=== PATIENT | male | born 1970 | race Caucasian/White ===

== ENCOUNTER 2020-04-17 15:47 | Emergency (ER) | payer OTHER, SELFPAY ==
[2020-04-17 16:04] VITALS: BP 154/92; PULSE 71; RESP 18; TEMP 36.8; O2SAT 99; BMI 25.7
[2020-04-17 16:51] VITALS: BP 133/77; PULSE 84; RESP 15; O2SAT 99
--- NOTE | 2020-04-17 17:50 | DI.MRI.S_ITS ---
PROCEDURE: MR LUMBAR SPINE WO/W CON INDICATIONS: pain, numbness, incontinence TECHNIQUE: Noncontrast sagittal T1 spin echo and T2 fast spin echo, sagittal STIR, axial T1 and T2 fast spin echo through the lumbar spine. In cases with scoliosis, additional coronal T2 fast spin echo may be performed. After the administration of contrast, sagittal and axial T1 spin echo with fat saturation through the lumbar spine. COMPARISON: [facility], MR, MR THORACIC SPINE WO/W CON, 04/17/2020, 18:39. [facility], CR, L-SPINE 2-3 VIEWS, 03/22/2016, 12:43. FINDINGS: Image quality: Motion is present on multiple sequences, limiting areas of fine detail evaluation. Alignment and curvature: There is trace retrolisthesis of L3 on L4. Marrow: Marrow is of normal overall signal. No acute vertebral body compression fractures. No suspicious marrow enhancement. Spinal cord: Conus medullaris terminates at the L1-L2 level. Visualized spinal cord demonstrates normal signal, without suspicious enhancement. Paraspinous soft tissues: No paravertebral masses or abnormal enhancement. Discs: Mild desiccation is present at L3-4, L5-S1. L1-L2: Minimal disc bulge with minimal canal narrowing. No foraminal narrowing. L2-L3: Prominent motion is present at this level. Minimal disc bulge with minimal canal narrowing. No foraminal narrowing. L3-L4: Significant motion is present at this level. No gross disc bulge, spinal stenosis or foraminal narrowing. L4-L5: Prominent motion is present at this level. Minimal disc bulge without spinal stenosis. Questionable minimal left foraminal narrowing. L5-S1: Prominent motion is present at this level. Minimal disc bulge without spinal stenosis. Questionable minimal foraminal narrowing. IMPRESSION: 1. Prior motion multiple levels limiting areas of evaluation. 2. Minimal scattered disc bulges, as well as minimal canal narrowing.. Dictated by: Zaida Haque M.D. on 04/17/2020 at 19:35 Approved by: Zaida Haque M.D. on 04/17/2020 at 19:39
--- NOTE | 2020-04-17 17:50 | DI.MRI.S_ITS ---
PROCEDURE: MR THORACIC SPINE WO/W CON INDICATIONS: pain, numbness, incontinence TECHNIQUE: Noncontrast sagittal T1 spin echo and T2 fast spin echo, sagittal STIR, axial T1 and T2 fast spin echo through the thoracic spine. After the administration of contrast, axial and sagittal T1 spin echo with fat saturation through the thoracic spine. COMPARISON: None. FINDINGS: Image quality: Motion is present on multiple sequences, limiting areas of fine detail evaluation. Alignment and curvature: There is normal bony alignment. Marrow: Marrow is of normal overall signal. No acute vertebral body compression fractures. Spinal cord: Visualized spinal cord is of normal signal and size, without abnormal enhancement. Paraspinous soft tissues: No paravertebral masses or abnormal enhancement. Miscellaneous: Disc bulge at T11-12 with moderate spinal stenosis and moderate left and mild right foraminal narrowing. Narrowing. Multilevel disc desiccation is present. IMPRESSION: 1. Disc bulge at T11-12 with moderate spinal stenosis and mild to moderate left and mild right foraminal Dictated by: Zaida Haque M.D. on 04/17/2020 at 19:21 Approved by: Zaida Haque M.D. on 04/17/2020 at 19:25
[2020-04-17 18:06] LABS: Add Manual Diff / Slide Review NO; Basophils Absolute Auto 100 /uL (0-100); Basophils Percent Auto 0.8 % (0-2); Eosinophils Absolute Auto 100 /uL (0-450); Eosinophils Percent Auto 1.3 % (2-4); Hematocrit 43.5 % (41-53); Hemoglobin 14.6 g/dL (13.5-17.5); Lymphocytes Absolute Auto 1600 /uL (1100-4500); Lymphocytes Percent Auto 18.6 % (25-40); Mean Corpuscular HGB Conc 33.6 % (30-36); Mean Corpuscular Hemoglobin 30.6 PG (26-34); Mean Corpuscular Volume 90.9 fL (80-100); Monocytes Absolute Auto 700 /uL (0-900); Monocytes Percent Auto 8.3 % (3-14); Neutrophils Absolute Auto 6100 /uL (1500-7000); Platelet Count 189 X10^3/uL (150-400); Red Blood Cell Count 4.78 X10^6/uL (4.5-5.9); Red Cell Distribution Width 16.8 % (11.6-14.8); White Blood Cell Count 8.6 X10^3/uL (4.5-11.0)
[2020-04-17 18:27] LABS: Erythrocyte Sedimentation Rate 3 MM/HR (0-15); Lactate (Lactic Acid) 1.1 mmol/L (0.7-2.1)
[2020-04-17 18:30] LABS: Alanine Aminotransferase 37 IU/L (<50); Albumin 5.2 g/dL (3.5-5.0); Albumin Globulin Ratio 1.5 (1.0-2.8); Alkaline Phosphatase 54 U/L (38-126); Aspartate Aminotransferase 47 IU/L (17-59); BUN Creatinine Ratio 11.3 (6-22); Bilirubin Total 1.1 mg/dL (0.2-1.3); Blood Urea Nitrogen 12 mg/dL (9-20); C-Reactive Protein Quant < 0.5 mg/dL (<1.0); Calcium 10.1 mg/dL (8.4-10.2); Carbon Dioxide 26 mmol/L (22-32); Chloride 105 mmol/L (98-107); Estimated Glomerular Filt Rate > 60.0 mL/min (>60); Globulin 3.5 g/dL (1.7-4.1); Glucose 86 mg/dL (70-100); HEMOLYSIS 63 (0-50); Potassium 4.1 mmol/L (3.4-5.1); Sodium 140 mmol/L (137-145); Total Protein 8.7 g/dL (6.3-8.2)
[2020-04-17] MEDS: LORazepam 2 MG/ML INJ 1 MG IV (18:36)
[2020-04-17 18:43] LABS: Procalcitonin < 0.05 ng/mL (<0.5)
--- NOTE | 2020-04-17 18:49 | PC.NURSE ---
Pt unable to lay down in MRI. Came to MRI and medicated pt with Ativan inorder to tolerate procedure.
--- NOTE | 2020-04-17 20:06 | ED.BACK ---
HPI - Back Pain/Injury <LANA Mendoza - Last Filed: 04/17/20 20:25> General Chief Complaint: Back Pain/Injury Stated Complaint: back pain Time Seen by Provider: 04/17/20 16:53 Source: patient and family Mode of arrival: Ambulatory Limitations: no limitations History of Present Illness HPI Narrative: The patient is a with history of left hip arthritis, waiting for hip replacement who presents the chief complaint of mid and lower back pain. This has been ongoing for the past several years but much worse over the past few weeks. He states he is having difficulties initiating and stopping urination, difficulties initiating and stopping bowel movements. He states he has had an episode of fecal incontinence. He states that he feels much weaker, is dropping things from his hands, and is overall concerned about his spine. He has taken Aleve this morning, but has not had anything else today. Related Data Home Medications Medication Instructions Recorded Confirmed emtricitabine-tenofovir (TDF) PO 04/14/20 04/14/20 meloxicam 7.5 mg tablet 7.5 mg PO DAILY 04/14/20 04/14/20 prazosin PO 04/14/20 04/14/20 Previous Rx's Medication Instructions Recorded anastrozole 1 mg tablet 1 mg PO QDAY #90 tab 11/28/19 testosterone cypionate 200 mg/mL 200 mg IM Q2W #10 ml 12/12/19 intramuscular oil sildenafil (pulm.hypertension) 20 20 mg PO .COMPLEX #50 tab 02/21/20 mg tablet polymyxin B sulfate 10,000 2 drop EYE-LEFT Q3H 7 Days #10 ml 04/14/20 unit-trimethoprim 1 mg/mL eye drops cyclobenzaprine 10 mg PO TID PRN #14 tab 04/17/20 hydrocodone-acetaminophen [Nash] 1 tab PO Q4-6H PRN #7 tab 04/17/20 ketorolac 10 mg PO TID PRN #14 tab 04/17/20 lidocaine 1 patch TOP DAILY PRN #15 each 04/17/20 Allergies Allergy/AdvReac Type Severity Reaction Status Date / Time No Known Drug Allergies Allergy Verified 04/14/20 09:34 Review of Systems <LANA Mendoza - Last Filed: 04/17/20 20:25> Review of Systems Narrative: GENERAL: Denies chills, fatigue, malaise, fever, sweats. HEENT: Denies sinus pain, ear pain, sore throat, difficulty swallowing, dizziness. RESPIRATORY: Denies dyspnea, cough, wheezing, hemoptysis, sputum. CARDIOVASCULAR: Denies chest pain, palpitations, orthopnea, edema, GASTROINTESTINAL: Denies nausea, vomiting, abdominal pain, diarrhea, constipation, melena. : Denies dysuria, frequency, incontinence, hematuria, urinary retention. MUSCULOSKELETAL: denies weakness, joint pain, or bony pain SKIN: Denies rash, skin lesions, or other NEUROLOGIC: See HPI PSYCHIATRIC: No concerning psychosocial issues. 12 point review of systems is negative except for those stated above Patient History <LANA Mendoaz - Last Filed: 04/17/20 20:25> Medical History (Updated 04/17/20 @ 20:18 by LANA Mendoza) Chickenpox (Resolved) Conjunctivitis (Acute) Fracture (Resolved) Frequent urination (Chronic) Hearing loss (Chronic) Hernia (Chronic) Hip pain (Chronic) Low testosterone (Chronic ~2015) Shoulder pain (Chronic) Staph infection (Resolved) Surgical History (Updated 01/30/19 @ 06:26 by Meghan Landry) Anesthesia (Inactive) History of abdominal surgery (Resolved ~1984) History of ankle surgery (Resolved ~1999) History of tonsillectomy (Resolved ~1979) Status post PICC central line placement (Resolved ~2009) Family History (Updated 01/30/19 @ 06:28 by Meghan Landry) Mother Cancer Brother No problems noted. Grandfather Cancer Grandmother Cancer Grandfather Heart disease Social History Smoking Status: Never smoker Smoking Status: Never smoker tobacco type: smokeless tobacco Substance Use Type: marijuana Exam <LANA Mendoza - Last Filed: 04/17/20 20:25> Narrative Exam Narrative: GENERAL: This is a well-nourished, well-developed patient, in appears anxious HEAD: Atraumatic. Normocephalic. No temporal or scalp tenderness. EYES: Pupils equal round and reactive. Extraocular motions intact. No scleral icterus. No injection or drainage. ENT: Nose without bleeding, purulent drainage or septal hematoma. Throat without erythema, tonsillar hypertrophy or exudate. Uvula midline. Airway patent. NECK: Trachea midline. No JVD or lymphadenopathy. Supple, nontender, no meningeal signs. CARDIOVASCULAR: Regular rate and rhythm RESPIRATORY: Clear to auscultation. Breath sounds equal bilaterally. No wheezes, rales, or rhonchi. No cough. No increased respiratory effort. No accessory muscle use. GASTROINTESTINAL: Abdomen soft, non-tender, nondistended. No hepato-splenomegaly, or palpable masses. No guarding. Rectal exam with Brenda RN at bedside. rectal tone intact at this point. EXTREMITIES: No clubbing, cyanosis, or edema. No joint tenderness, effusion, or edema noted. BACK: Gross tenderness to palpation of T and L-spine. No pain to palpation of C-spine. No palpable deformity or crepitance. No flank tenderness. NEURO: AOx3. SKIN: No rash or erythema on visible skin Initial Vital Signs Initial Vital Signs: Vital Signs Temperature 98.2 F 04/17/20 16:04 Pulse Rate 71 04/17/20 16:04 Respiratory Rate 18 04/17/20 16:04 Blood Pressure 154/92 H 04/17/20 16:04 Pulse Oximetry 99 04/17/20 16:04 <Camilo Grayson MD - Last Filed: 04/20/20 19:01> Initial Vital Signs Initial Vital Signs: Vital Signs Temperature 98.2 F 04/17/20 16:04 Pulse Rate 71 04/17/20 16:04 Respiratory Rate 18 04/17/20 16:04 Blood Pressure 154/92 H 04/17/20 16:04 Pulse Oximetry 99 04/17/20 16:04 Scores <LANA Mendoza - Last Filed: 04/17/20 20:25> GCS Anitra coma scale eye opening: Spontaneous [place] coma scale verbal response: Orientated [place] coma scale motor response: Obey commands [place] coma scale total score: 15 Course <LANA Mendoza - Last Filed: 04/17/20 20:25> Orders Ordered: Discontinued Medications Hydrocodone Bitart/Acetaminophen (Nash 5/325) 1 tab PO NOW ONE Stop: 04/17/20 19:49 Last Admin: 04/17/20 20:16 Dose: 1 tab Documented by: AUTASHA Cyclobenzaprine HCl (Flexeril) 10 mg PO NOW ONE Stop: 04/17/20 19:49 Last Admin: 04/17/20 20:16 Dose: 10 mg Documented by: CHEY Ketorolac Tromethamine (Toradol) 30 mg IM NOW ONE Stop: 04/17/20 19:49 Last Admin: 04/17/20 20:16 Dose: 30 mg Documented by: CHEY Lidocaine (Lidoderm) 1 each TOP NOW ONE Stop: 04/17/20 19:49 Last Admin: 04/17/20 20:16 Dose: 1 each Documented by: CHEY Lorazepam (Ativan) 1 mg IV NOW ONE Stop: 04/17/20 18:33 Last Admin: 04/17/20 18:36 Dose: 1 mg Documented by: EAMON Vital Signs Vital signs: Vital Signs - 8 hr 04/17/20 16:04 04/17/20 16:51 Temperature 98.2 F Pulse Rate 71 84 Respiratory Rate 18 15 Blood Pressure 154/92 H 133/77 Pulse Oximetry 99 99 <Camilo Grayson MD - Last Filed: 04/20/20 19:01> Orders Ordered: Discontinued Medications Hydrocodone Bitart/Acetaminophen (Nash 5/325) 1 tab PO NOW ONE Stop: 04/17/20 19:49 Last Admin: 04/17/20 20:16 Dose: 1 tab Documented by: CHEY Cyclobenzaprine HCl (Flexeril) 10 mg PO NOW ONE Stop: 04/17/20 19:49 Last Admin: 04/17/20 20:16 Dose: 10 mg Documented by: CHEY Ketorolac Tromethamine (Toradol) 30 mg IM NOW ONE Stop: 04/17/20 19:49 Last Admin: 04/17/20 20:16 Dose: 30 mg Documented by: CHEY Lidocaine (Lidoderm) 1 each TOP NOW ONE Stop: 04/17/20 19:49 Last Admin: 04/17/20 20:16 Dose: 1 each Documented by: CHEY Lorazepam (Ativan) 1 mg IV NOW ONE Stop: 04/17/20 18:33 Last Admin: 04/17/20 18:36 Dose: 1 mg Documented by: EAMON Vital Signs Vital signs: Vital Signs - 8 hr 04/17/20 16:04 04/17/20 16:51 Temperature 98.2 F Pulse Rate 71 84 Respiratory Rate 18 15 Blood Pressure 154/92 H 133/77 Pulse Oximetry 99 99 MDM - Back Pain/Injury <Karena Samson, [employer] - Last Filed: 04/17/20 20:25> Lab Data Result diagrams: 04/17/20 18:00 04/17/20 18:00 Labs: Lab Results 04/17/20 04/17/20 04/17/20 Range/Units 18:00 18:00 18:00 WBC 8.6 (4.5-11.0) X10^3/uL RBC 4.78 (4.5-5.9) X10^6/uL Hgb 14.6 (13.5-17.5) g/dL Hct 43.5 (41-53) % MCV 90.9 (80-100) fL MCH 30.6 (26-34) PG MCHC 33.6 (30-36) % RDW 16.8 H (11.6-14.8) % Plt Count 189 (150-400) X10^3/uL Neut % (Auto) 71.0 (50-75) % Lymph % (Auto) 18.6 L (25-40) % [place] % (Auto) 8.3 (3-14) % Eos % (Auto) 1.3 L (2-4) % Baso % (Auto) 0.8 (0-2) % Neut # (Auto) 6100 (4523-6821) /uL Lymph # (Auto) 1600 (5939-2541) /uL [place] # (Auto) 700 (0-900) /uL Eos # (Auto) 100 (0-450) /uL Baso # (Auto) 100 (0-100) /uL ESR 3 (0-15) MM/HR Sodium 140 (137-145) mmol/L Potassium 4.1 (3.4-5.1) mmol/L Chloride 105 (98-107) mmol/L Carbon Dioxide 26 (22-32) mmol/L BUN 12 (9-20) mg/dL Creatinine 1.06 (0.66-1.25) mg/dL Estimated GFR > 60.0 (>60) mL/min BUN/Creatinine Ratio 11.3 (6-22) Glucose 86 (70-100) mg/dL Lactate (0.7-2.1) mmol/L Calcium 10.1 (8.4-10.2) mg/dL Total Bilirubin 1.1 (0.2-1.3) mg/dL AST 47 (17-59) IU/L ALT 37 (<50) IU/L Alkaline Phosphatase 54 (38-126) U/L C-Reactive Protein < 0.5 (<1.0) mg/dL Total Protein 8.7 H (6.3-8.2) g/dL Albumin 5.2 H (3.5-5.0) g/dL Globulin 3.5 (1.7-4.1) g/dL Albumin/Globulin Ratio 1.5 (1.0-2.8) Procalcitonin < 0.05 (<0.5) ng/mL 04/17/20 Range/Units 18:00 WBC (4.5-11.0) X10^3/uL RBC (4.5-5.9) X10^6/uL Hgb (13.5-17.5) g/dL Hct (41-53) % MCV (80-100) fL MCH (26-34) PG MCHC (30-36) % RDW (11.6-14.8) % Plt Count (150-400) X10^3/uL Neut % (Auto) (50-75) % Lymph % (Auto) (25-40) % [place] % (Auto) (3-14) % Eos % (Auto) (2-4) % Baso % (Auto) (0-2) % Neut # (Auto) (7065-5796) /uL Lymph # (Auto) (3381-5360) /uL [place] # (Auto) (0-900) /uL Eos # (Auto) (0-450) /uL Baso # (Auto) (0-100) /uL ESR (0-15) MM/HR Sodium (137-145) mmol/L Potassium (3.4-5.1) mmol/L Chloride (98-107) mmol/L Carbon Dioxide (22-32) mmol/L BUN (9-20) mg/dL Creatinine (0.66-1.25) mg/dL Estimated GFR (>60) mL/min BUN/Creatinine Ratio (6-22) Glucose (70-100) mg/dL Lactate 1.1 (0.7-2.1) mmol/L Calcium (8.4-10.2) mg/dL Total Bilirubin (0.2-1.3) mg/dL AST (17-59) IU/L ALT (<50) IU/L Alkaline Phosphatase (38-126) U/L C-Reactive Protein (<1.0) mg/dL Total Protein (6.3-8.2) g/dL Albumin (3.5-5.0) g/dL Globulin (1.7-4.1) g/dL Albumin/Globulin Ratio (1.0-2.8) Procalcitonin (<0.5) ng/mL Urine Dip Bedside Urine Glucose Negative Bedside Urine Bilirubin - Negative Bedside Urine Ketone +/- 5 Urine Specific [place] 1.020 Bedside Urine Occult Blood - Negative Bedside Urine pH 6.0 Bedside Urine Protein - Negative Bedside Urine Urobilinogen +/- 1mg Bedside Urine Nitrite - Negative Bedside Urine Leukocytes - Negative Esterase Imaging Data T-spine MRI: Radiologist's Impression: [address] [place] [id number] Magnetic Resonance Report Signed Patient: Keenan Edge WMR#: [id number] : 1970Acct:[id number] Age/Sex: 49 / MDate of Service: 04/17/20 Loc: ED Accession Number: [id number] Procedure: MR thoracic spine wo/w con Ordering Provider: Karena SamsonP- PROCEDURE: MR THORACIC SPINE WO/W CON INDICATIONS: pain, numbness, incontinence TECHNIQUE: Noncontrast sagittal T1 spin echo and T2 fast spin echo, sagittal STIR, axial T1 and T2 fast spin echo through the thoracic spine. After the administration of contrast, axial and sagittal T1 spin echo with fat saturation through the thoracic spine. COMPARISON: None. FINDINGS: Image quality: Motion is present on multiple sequences, limiting areas of fine detail evaluation. Alignment and curvature: There is normal bony alignment. Marrow: Marrow is of normal overall signal. No acute vertebral body compression fractures. Spinal cord: Visualized spinal cord is of normal signal and size, without abnormal enhancement. Paraspinous soft tissues: No paravertebral masses or abnormal enhancement. Miscellaneous: Disc bulge at T11-12 with moderate spinal stenosis and moderate left and mild right foraminal narrowing. Narrowing. Multilevel disc desiccation is present. IMPRESSION: 1. Disc bulge at T11-12 with moderate spinal stenosis and mild to moderate left and mild right foraminal Dictated by: Zaida Haque M.D. on 04/17/2020 at 19:21 Approved by: Zaida Haque M.D. on 04/17/2020 at 19:25 L-spine MRI: Radiologist's Impression: [address] [place] [id number] Magnetic Resonance Report Signed Patient: Keenan Edge WMR#: [id number] : 1970Acct:[id number] Age/Sex: 49 / MDate of Service: 04/17/20 Loc: ED Accession Number: [id number] Procedure: MR lumbar spine wo/w con Ordering Provider: Karena Samson PROCEDURE: MR LUMBAR SPINE WO/W CON INDICATIONS: pain, numbness, incontinence TECHNIQUE: Noncontrast sagittal T1 spin echo and T2 fast spin echo, sagittal STIR, axial T1 and T2 fast spin echo through the lumbar spine. In cases with scoliosis, additional coronal T2 fast spin echo may be performed. After the administration of contrast, sagittal and axial T1 spin echo with fat saturation through the lumbar spine. COMPARISON: [facility], , MR THORACIC SPINE WO/W CON, 04/17/2020, 18:39. [facility], CR, L-SPINE 2-3 VIEWS, 03/22/2016, 12:43. FINDINGS: Image quality: Motion is present on multiple sequences, limiting areas of fine detail evaluation. Alignment and curvature: There is trace retrolisthesis of L3 on L4. Marrow: Marrow is of normal overall signal. No acute vertebral body compression fractures. No suspicious marrow enhancement. Spinal cord: Conus medullaris terminates at the L1-L2 level. Visualized spinal cord demonstrates normal signal, without suspicious enhancement. Paraspinous soft tissues: No paravertebral masses or abnormal enhancement. Discs: Mild desiccation is present at L3-4, L5-S1. L1-L2: Minimal disc bulge with minimal canal narrowing. No foraminal narrowing. L2-L3: Prominent motion is present at this level. Minimal disc bulge with minimal canal narrowing. No foraminal narrowing. L3-L4: Significant motion is present at this level. No gross disc bulge, spinal stenosis or foraminal narrowing. L4-L5: Prominent motion is present at this level. Minimal disc bulge without spinal stenosis. Questionable minimal left foraminal narrowing. L5-S1: Prominent motion is present at this level. Minimal disc bulge without spinal stenosis. Questionable minimal foraminal narrowing. IMPRESSION: 1. Prior motion multiple levels limiting areas of evaluation. 2. Minimal scattered disc bulges, as well as minimal canal narrowing.. Dictated by: Zaida Haque M.D. on 04/17/2020 at 19:35 Approved by: Zaida Haque M.D. on 04/17/2020 at 19:39 [facility] Narrative Medical decision making narrative: The patient is a 49-year-old male who presents with a chief complaint of back pain, groin numbness and incontinence of bowel. He has urinary difficulties over the past few weeks, and was incontinent a few days ago. Subsequently the patient's history raise concerns for an acute etiology such as cauda equina. Discussed case with Dr. Grayson who encouraged MRI of L and T-spine. MRI was obtained and had no acute findings other than disc bulging, stenosis. Pain medications were provided in the patient felt much reassured. I encouraged him to follow up with primary care provider as well as orthopedic providers. Discussed at length return precautions including incontinence of bowel, incontinence of bladder or numbness in his groin. Discussed that even though things came up well today, he needs to come back if he has any acute concerns. Patient has no questions or concerns upon discharge and states understanding of return precautions as well as follow-up care. <Camilo Grayson MD - Last Filed: 04/20/20 19:01> Lab Data Labs: Lab Results 04/17/20 04/17/20 04/17/20 Range/Units 18:00 18:00 18:00 WBC 8.6 (4.5-11.0) X10^3/uL RBC 4.78 (4.5-5.9) X10^6/uL Hgb 14.6 (13.5-17.5) g/dL Hct 43.5 (41-53) % MCV 90.9 (80-100) fL MCH 30.6 (26-34) PG MCHC 33.6 (30-36) % RDW 16.8 H (11.6-14.8) % Plt Count 189 (150-400) X10^3/uL Neut % (Auto) 71.0 (50-75) % Lymph % (Auto) 18.6 L (25-40) % [place] % (Auto) 8.3 (3-14) % Eos % (Auto) 1.3 L (2-4) % Baso % (Auto) 0.8 (0-2) % Neut # (Auto) 6100 (0168-1300) /uL Lymph # (Auto) 1600 (9568-8720) /uL [place] # (Auto) 700 (0-900) /uL Eos # (Auto) 100 (0-450) /uL Baso # (Auto) 100 (0-100) /uL ESR 3 (0-15) MM/HR Sodium 140 (137-145) mmol/L Potassium 4.1 (3.4-5.1) mmol/L Chloride 105 (98-107) mmol/L Carbon Dioxide 26 (22-32) mmol/L BUN 12 (9-20) mg/dL Creatinine 1.06 (0.66-1.25) mg/dL Estimated GFR > 60.0 (>60) mL/min BUN/Creatinine Ratio 11.3 (6-22) Glucose 86 (70-100) mg/dL Lactate (0.7-2.1) mmol/L Calcium 10.1 (8.4-10.2) mg/dL Total Bilirubin 1.1 (0.2-1.3) mg/dL AST 47 (17-59) IU/L ALT 37 (<50) IU/L Alkaline Phosphatase 54 (38-126) U/L C-Reactive Protein < 0.5 (<1.0) mg/dL Total Protein 8.7 H (6.3-8.2) g/dL Albumin 5.2 H (3.5-5.0) g/dL Globulin 3.5 (1.7-4.1) g/dL Albumin/Globulin Ratio 1.5 (1.0-2.8) Procalcitonin < 0.05 (<0.5) ng/mL 04/17/20 Range/Units 18:00 WBC (4.5-11.0) X10^3/uL RBC (4.5-5.9) X10^6/uL Hgb (13.5-17.5) g/dL Hct (41-53) % MCV (80-100) fL MCH (26-34) PG MCHC (30-36) % RDW (11.6-14.8) % Plt Count (150-400) X10^3/uL Neut % (Auto) (50-75) % Lymph % (Auto) (25-40) % [place] % (Auto) (3-14) % Eos % (Auto) (2-4) % Baso % (Auto) (0-2) % Neut # (Auto) (0365-1118) /uL Lymph # (Auto) (3247-5040) /uL [place] # (Auto) (0-900) /uL Eos # (Auto) (0-450) /uL Baso # (Auto) (0-100) /uL ESR (0-15) MM/HR Sodium (137-145) mmol/L Potassium (3.4-5.1) mmol/L Chloride (98-107) mmol/L Carbon Dioxide (22-32) mmol/L BUN (9-20) mg/dL Creatinine (0.66-1.25) mg/dL Estimated GFR (>60) mL/min BUN/Creatinine Ratio (6-22) Glucose (70-100) mg/dL Lactate 1.1 (0.7-2.1) mmol/L Calcium (8.4-10.2) mg/dL Total Bilirubin (0.2-1.3) mg/dL AST (17-59) IU/L ALT (<50) IU/L Alkaline Phosphatase (38-126) U/L C-Reactive Protein (<1.0) mg/dL Total Protein (6.3-8.2) g/dL Albumin (3.5-5.0) g/dL Globulin (1.7-4.1) g/dL Albumin/Globulin Ratio (1.0-2.8) Procalcitonin (<0.5) ng/mL Urine Dip Bedside Urine Glucose Negative Bedside Urine Bilirubin - Negative Bedside Urine Ketone +/- 5 Urine Specific [place] 1.020 Bedside Urine Occult Blood - Negative Bedside Urine pH 6.0 Bedside Urine Protein - Negative Bedside Urine Urobilinogen +/- 1mg Bedside Urine Nitrite - Negative Bedside Urine Leukocytes - Negative Esterase Discharge Plan Departure Patient Disposition: Home Clinical Impression: Pain in lower back Qualifiers: Chronicity: acute Back pain laterality: bilateral Sciatica presence: without sciatica Qualified Code(s): M54.5 - Low back pain Back pain, thoracic Qualifiers: Chronicity: acute Back pain laterality: bilateral Qualified Code(s): M54.6 - Pain in thoracic spine Discharge Date/Time: 04/17/20 20:33 Instructions: DI for Low Back Pain, DI for Back Spasm, DI for Back Strain or Sprain Activity Restrictions/Additional Instructions: Thank you for trusting us with your care today. As discussed your T and L-spine MRIs or taken and due to concerns about neurological function. They came back with multiple minimal disc bulges in her L-spine as well as minimal narrowing in your L-spine. The T-spine showed some disc bulge at T11-12 as well as some spinal stenosis. Please follow-up with primary care provider as well as your orthopedic providers. I sent pain medication prescriptions to [facility]. Please come back to emergency department for any acute concerns including incontinence of bowel, incontinence of bladder or numbness in your groin. I have given you a prescription of a narcotic for pain. Be aware that this can be constipating and sedating. I encouraged taking with a stool softener, pushing fluids and fiber. Do not take and drive, operate heavy machinery, etc. Do not combine it with any other sedating substances such as alcohol. The combination of narcotics and alcohol and/or other sedatives can be lethal. I have given you a prescription of Toradol. This is an NSAID. Do not combine it with other NSAIDs such as Aleve or ibuprofen or mobic. I suggest taking it with some food, as it can irritate your stomach. Please be aware that the cyclobenzaprine can also be sedating. Do not take and drive. Prescriptions: New hydrocodone-acetaminophen [Nash] 5-325 mg tablet 1 tab PO Q4-6H PRN (Reason: pain) Qty: 7 RF: 0 cyclobenzaprine 10 mg tablet 10 mg PO TID PRN (Reason: muscle spasm) Qty: 14 RF: 0 lidocaine 5 % adhesive patch,medicated 1 patch TOP DAILY PRN (Reason: pain) Qty: 15 RF: 0 ketorolac 10 mg tablet 10 mg PO TID PRN (Reason: pain) Qty: 14 RF: 0 No Action emtricitabine-tenofovir (TDF) PO RF: 0 meloxicam 7.5 mg tablet 7.5 mg PO DAILY RF: 0 prazosin PO RF: 0 polymyxin B sulf-trimethoprim 10,000 unit- 1 mg/mL drops 2 drop EYE-LEFT Q3H 7 Days Qty: 10 RF: 0 anastrozole 1 mg tablet 1 mg PO QDAY Qty: 90 RF: 3 testosterone cypionate 200 mg/mL oil 200 mg IM Q2W Qty: 10 RF: 5 sildenafil (pulm.hypertension) 20 mg tablet 20 mg PO .COMPLEX Qty: 50 RF: 5 Referrals: Jean Dobbins MD [Primary Care Provider] - <Camilo Grayson MD - Last Filed: 04/20/20 19:01> Cosign ED Attending Cosignature Attestation: I was immediately available in the department for consultation. This documentation has been reviewed and I agree with assessment and plan. Supervised by Camilo Grayson MD
[2020-04-17] MEDS: CYCLOBENZAPRINE 10 MG TABLET PO (20:16)
[2020-04-17] MEDS: LIDOCAINE PATCH 1 EACH ADH..PATCH TOP (20:16)
[2020-04-17] MEDS: KETOROLAC 60 MG/2 ML VIAL 30 MG IM (20:16)
[2020-04-17] MEDS: HYDROCODONE/ACET 5/325 TABLET 1 TAB PO (20:16)
[2020-04-17 20:32] VITALS: BP 113/62; PULSE 63; RESP 16; O2SAT 96
== END 2020-04-17 20:33 | disposition home or self-care (01) ==
PROVIDERS: Emergency Provider Nurse Practitioner Family; Family Provider Nurse Practitioner Acute Care; PCP Family Medicine
DX: M54.5 Low back pain (principal); M54.6 Pain in thoracic spine; R20.0 Anesthesia of skin
CPT/HCPCS: 36415; 72157; 72158; 80053; 81003; 83605; 84145; 85025; 85651; 86140; 96372; 96374; 99284; J1885; J2060

== ENCOUNTER → 2020-04-30 14:52 | Outpatient (CLI) | payer OTHER, SELFPAY ==
[2020-04-30 16:17] LABS: Add Manual Diff / Slide Review NO; Basophils Absolute Auto 100 /uL (0-100); Basophils Percent Auto 0.8 % (0-2); Eosinophils Absolute Auto 100 /uL (0-450); Eosinophils Percent Auto 1.5 % (2-4); Hematocrit 44.1 % (41-53); Hemoglobin 14.6 g/dL (13.5-17.5); Lymphocytes Absolute Auto 1500 /uL (1100-4500); Lymphocytes Percent Auto 20.8 % (25-40); Mean Corpuscular HGB Conc 33.1 % (30-36); Mean Corpuscular Hemoglobin 30.2 PG (26-34); Mean Corpuscular Volume 91.1 fL (80-100); Monocytes Absolute Auto 400 /uL (0-900); Monocytes Percent Auto 6.3 % (3-14); Neutrophils Absolute Auto 4900 /uL (1500-7000); Neutrophils Percent Auto 70.6 % (50-75); Platelet Count 183 X10^3/uL (150-400); Red Blood Cell Count 4.84 X10^6/uL (4.5-5.9); Red Cell Distribution Width 16.3 % (11.6-14.8)
[2020-04-30 16:25] LABS: Hemoglobin A1C% w Est Avg Glu 5.8 % (4.0-6.0)
[2020-04-30 16:48] LABS: INR 1.1 (0.9-1.3); Prothrombin Time 12.6 SECONDS (10.1-12.7)
[2020-04-30 17:01] LABS: Alanine Aminotransferase 46 IU/L (<50); Albumin 4.9 g/dL (3.5-5.0); Albumin Globulin Ratio 1.5 (1.0-2.8); Alkaline Phosphatase 60 U/L (38-126); Aspartate Aminotransferase 40 IU/L (17-59); BUN Creatinine Ratio 15.4 (6-22); Bilirubin Total 0.6 mg/dL (0.2-1.3); Blood Urea Nitrogen 18 mg/dL (9-20); Calcium 9.9 mg/dL (8.4-10.2); Carbon Dioxide 29 mmol/L (22-32); Chloride 100 mmol/L (98-107); Cholesterol 219 mg/dL (140-199); Estimated Glomerular Filt Rate > 60.0 mL/min (>60); Globulin 3.3 g/dL (1.7-4.1); Glucose 134 mg/dL (70-100); HDL Cholesterol 75 mg/dL (40-60); HEMOLYSIS < 15 (0-50); LDL Cholesterol Calculated 130 mg/dL (<100); Potassium 4.1 mmol/L (3.4-5.1); Sodium 138 mmol/L (137-145); Total Protein 8.2 g/dL (6.3-8.2); Triglycerides 68 mg/dL (35-150)
[2020-04-30 17:41] LABS: Urine N gonorrhoeae NOT DETECTED
[2020-04-30 17:42] LABS: Urine Chlamydia NOT DETECTED
[2020-05-01 08:13] LABS: RPR Screen Non Reactive (Non Reactive)
[2020-05-01 14:58] LABS: HIV 1 & 2 Ab/Ag 4th Gen Combo NEGATIVE (NEGATIVE); Hep C Virus Ab w/Reflex Quant NEGATIVE s/c (NEGATIVE)
== END ==
PROVIDERS: Family Provider Nurse Practitioner Acute Care; PCP Family Medicine; Referring Provider Family Medicine; Visit Provider Family Medicine
DX: Z00.01 Encounter for general adult medical examination with abnormal findings (principal); M16.12 Unilateral primary osteoarthritis, left hip; Z00.00 Encounter for general adult medical examination without abnormal findings; S80.10XA Contusion of unspecified lower leg, initial encounter
CPT/HCPCS: 36415; 80053; 80061; 83036; 85025; 85610; 86592; 86803; 87389; 87491; 87591

== ENCOUNTER → 2020-10-15 15:06 | Outpatient (CLI) | payer OTHER, SELFPAY ==
[2020-10-15 17:22] LABS: Prostate Specific Antigen Scrn 0.828 ng/mL (0.1-4.0)
[2020-10-19 18:28] LABS: Percent Free Testosterone 1.93 % (1.50-4.20); Testosterone Free 9.37 ng/dL (5.00-21.00); Testosterone Total 485.3 ng/dL (264.0-916.0)
== END ==
PROVIDERS: Family Provider Nurse Practitioner Acute Care; PCP Family Medicine; Referring Provider Family Medicine; Visit Provider Family Medicine
DX: E34.9 Endocrine disorder, unspecified (principal); Z12.5 Encounter for screening for malignant neoplasm of prostate
CPT/HCPCS: 36415; 84402; 84403; G0103

== ENCOUNTER → 2021-01-01 11:41 | Outpatient (CLI) | payer OTHER, SELFPAY ==
[2021-01-01 13:34] LABS: BUN Creatinine Ratio 11.6 (6-22); Blood Urea Nitrogen 11 mg/dL (9-20); Calcium 9.8 mg/dL (8.4-10.2); Carbon Dioxide 27 mmol/L (22-32); Chloride 102 mmol/L (98-107); Estimated Glomerular Filt Rate > 60.0 mL/min (>60); Glucose 102 mg/dL (70-100); HEMOLYSIS < 15 (0-50); Potassium 4.3 mmol/L (3.4-5.1); Sodium 136 mmol/L (137-145)
[2021-01-01 14:30] LABS: Urine Chlamydia NOT DETECTED; Urine N gonorrhoeae NOT DETECTED
[2021-01-01 16:30] LABS: HIV 1 & 2 Ab/Ag 4th Gen Combo NEGATIVE (NEGATIVE)
[2021-01-02 03:24] LABS: HBsAg Screen Negative (Negative); Hepatitis A Antibody IgM Negative (Negative); Hepatitis B Core Antibody IgM Negative (Negative); Hepatitis C Antibody 0.1 s/co ratio (0.0-0.9)
[2021-01-02 06:16] LABS: RPR Screen Non Reactive (Non Reactive)
== END ==
PROVIDERS: Family Provider Nurse Practitioner Acute Care; PCP Family Medicine; Referring Provider Family Medicine; Visit Provider Family Medicine
DX: Z72.52 High risk homosexual behavior (principal)
CPT/HCPCS: 36415; 80048; 80074; 86592; 87389; 87491; 87591

== ENCOUNTER 2021-01-20 14:05 | Emergency (ER) | payer OTHER, SELFPAY ==
[2021-01-20 14:34] VITALS: BP 144/80; PULSE 94; RESP 20; TEMP 37; O2SAT 95; BMI 26.4
--- NOTE | 2021-01-20 18:04 | ED_ITS ---
HPI - Extremity Problem General Chief complaint: Extremity Problem,Nontraumatic Stated complaint: tingling/numbness/rib pain after hip surgery Time Seen by Provider: 01/20/21 18:03 Source: patient Mode of arrival: Ambulatory Limitations: no limitations History of Present Illness HPI Narrative: 50M nonsmoker with history of various somatic dysfunctions, chronic pain, fatigue presents with a chief complaint of very symptoms that had been causing him trouble for many months if not longer. 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 He required surgical interventions after injuring himself while at a wrestling practice. He states he has had various ongoing symptoms in the aftermath which have yet to be addressed. He states he has had twitching of his lower extremities and that they tend to move on their own. He feels like the left lower ribs are out of place. He has pain in his left hip and is unable to flex, extend, or adduct like he could prior to his injury. He feels occasional fullness in his throat. He denies any medication or dietary changes. He states none of these symptoms are new. He has discussed them with his orthopedist, PCP among others. Related Data Previous Rx's Medication Instructions Recorded testosterone cypionate 200 mg/mL 200 mg IM Q2W #10 ml 10/20/20 intramuscular oil anastrozole 1 mg tablet 1 mg PO QDAY #90 tab 12/10/20 emtricitabine 200 mg-tenofovir See Rx Instructions .ROUTE 12/11/20 disoproxil fumarate 300 mg tablet .COMPLEX #90 tab prazosin 1 mg capsule 2 mg PO BID #360 cap 12/17/20 Allergies Allergy/AdvReac Type Severity Reaction Status Date / Time No Known Drug Allergies Allergy Verified 01/20/21 14:41 Review of Systems Review of Systems Narrative: GENERAL:see HPI HEENT: Denies sinus pain, ear pain, sore throat, difficulty swallowing, dizziness. RESPIRATORY: Denies dyspnea, cough, wheezing, hemoptysis, sputum. CARDIOVASCULAR: Denies chest pain, palpitations, orthopnea, edema, GASTROINTESTINAL: Denies nausea, vomiting, abdominal pain, diarrhea, constipation, melena. : Denies dysuria, frequency, incontinence, hematuria, urinary retention. MUSCULOSKELETAL: see HPI SKIN: Denies rash, skin lesions, or other NEUROLOGIC: see HPI PSYCHIATRIC: No concerning psychosocial issues. 12 point review of systems is negative except for those stated above Patient History Medical History Bilateral leg cramps Cervical somatic dysfunction Cervicalgia Chickenpox Chronic bilateral low back pain without sciatica Chronic thoracic back pain Conjunctivitis Foot joint stiffness, bilateral Fracture Frequent urination Hearing loss Hernia Hip pain Low testosterone (~2015) Lumbar region somatic dysfunction Pelvic somatic dysfunction Psoas muscle strain Sacral region somatic dysfunction Segmental and somatic dysfunction of abdomen and other regions Shoulder pain Somatic dysfunction of lower extremity Staph infection Thoracic region somatic dysfunction Surgical History Anesthesia History of abdominal surgery (~1984) History of ankle surgery (~1999) History of tonsillectomy (~1979) Status post PICC central line placement (~2009) Family History Mother Cancer Brother No problems noted. Grandfather Cancer Grandmother Cancer Grandfather Heart disease Social History Smoking Status: Never smoker Smoking Status: Never smoker tobacco type: smokeless tobacco alcohol intake frequency: 0-2 drinks per day Substance Use Type: marijuana Exam Narrative Exam Narrative: GENERAL: [50] year old patient appears stated age. Well- developed patient, in mild distress.Visibly upset HEAD: Atraumatic. Normocephalic. EYES: Pupils equal round and reactive. Extraocular motions intact. No scleral ic terus. No injection or drainage. ENT: Nose without bleeding, purulent drainage. Throat without erythema, tonsillar hypertrophy or exudate. Airway patent. NECK: Trachea midline. Non tender CARDIOVASCULAR: Regular rate and rhythm without murmurs, gallops, or rubs. RESPIRATORY: Clear to auscultation. Breath sounds equal bilaterally. No wheezes, rales, or rhonchi. GASTROINTESTINAL: Abdomen soft, non-tender, nondistended. EXTREMITIES: No edema or joint tenderness. BACK: Nontender without deformity or crepitance. No flank tenderness. NEURO: AOx3. SKIN: No rash or erythema of visible areas Initial Vital Signs Initial Vital Signs: Vital Signs Temperature 98.6 F 01/20/21 14:34 Pulse Rate 94 H 08/10/21 14:34 Respiratory Rate 20 01/20/21 14:34 Blood Pressure 144/80 H 01/20/21 14:34 Pulse Oximetry 95 01/20/21 14:34 Course Orders Ordered: ED Orders 01/20/21 18:08 Chest [XR chest 1V] Stat 01/20/21 18:15 Complete Blood Count AUTO DIFF Stat Comprehensive Metabolic Panel Stat Lactate (Lactic Acid) Stat cardiac panel [Troponin & CK Cardiac Panel] Stat Vital Signs Vital signs: Vital Signs - 8 hr 01/20/21 18:15 01/20/21 19:39 Pulse Rate 72 66 Respiratory Rate 22 16 Blood Pressure 136/82 134/75 Pulse Oximetry 95 98 MDM - Extremity (Nontraumatic) Lab Data Result diagrams: 01/20/21 18:15 01/20/21 18:15 Labs: Lab Results 01/20/21 01/20/21 01/20/21 Range/Units 18:15 18:15 18:15 WBC 6.4 (4.5-11.0) X10^3/uL RBC 4.75 (4.5-5.9) X10^6/uL Hgb 14.2 (13.5-17.5) g/dL Hct 43.1 (41-53) % MCV 90.8 (80-100) fL MCH 30.0 (26-34) PG MCHC 33.1 (30-36) % RDW 16.5 H (11.6-14.8) % Plt Count 173 (150-400) X10^3/uL Neut % (Auto) 72.0 (50-75) % Lymph % (Auto) 17.4 L (25-40) % [place] % (Auto) 8.8 (3-14) % Eos % (Auto) 0.8 L (2-4) % Baso % (Auto) 1.0 (0-2) % Neut # (Auto) 4600 (4894-9292) /uL Lymph # (Auto) 1100 (8282-0864) /uL [place] # (Auto) 600 (0-900) /uL Eos # (Auto) 100 (0-450) /uL Baso # (Auto) 100 (0-100) /uL Sodium 140 (137-145) mmol/L Potassium 3.7 (3.4-5.1) mmol/L Chloride 103 (98-107) mmol/L Carbon Dioxide 26 (22-32) mmol/L BUN 11 (9-20) mg/dL Creatinine 1.03 (0.66-1.25) mg/dL Estimated GFR > 60.0 (>60) mL/min BUN/Creatinine Ratio 10.7 (6-22) Glucose 94 (70-100) mg/dL Lactate 0.9 (0.7-2.1) mmol/L Calcium 9.7 (8.4-10.2) mg/dL Total Bilirubin 1.1 (0.2-1.3) mg/dL AST 43 (17-59) IU/L ALT 37 (<50) IU/L Alkaline Phosphatase 71 (38-126) U/L Total Creatine Kinase 324 H (55-170) U/L CK-MB (CK-2) 1.94 (<2.37) ng/mL CK-MB (CK-2) Rel Index 0.6 L (1.5-5.0) % Troponin I < 0.012 (0.01-0.034) ng/mL Total Protein 7.9 (6.3-8.2) g/dL Albumin 4.9 (3.5-5.0) g/dL Globulin 3.0 (1.7-4.1) g/dL Albumin/Globulin Ratio 1.6 (1.0-2.8) MDM Narrative Medical decision making narrative: Patient is clearly upset and physically feels unwell and has for some time. He admits that he is upset that he cannot exercise or perform athletically like he could before his injury. He states that he has various ailments and complaints that have been increasing in acting up and he feels upset that nobody can find an answer. He questions with a nod people think he is crazy and this is clearly making him upset and very unse ttled. His physical exam and labs are very reassuring and there is no evidence of any a element which would require an immediate intervention. I have reviewed his medications and MRIs with him. We talked at length about what seems like a multifactorial set of causes of his symptoms, including his compromised ability to use his usual coping mechanisms. He expressed a level of understanding and seemed quite happy that he could take some steps to slowly identify what may be contributing and that he could sit down with his doctor to come up with a plan. I encouraged him to consider finding a therapist or counselor to help him keep level headed through these difficult times. He had been given extensive return precautions and questions answered to his apparent satisfaction Discharge Plan Departure Patient Disposition: Home Clinical Impression: Complaint of paresthesia Fatigue Qualifiers: Fatigue type: chronic, unspecified Qualified Code(s): R53.82 - Chronic fatigue, unspecified Instructions: DI for Numbness/Tingling, DI for Muscle Weakness Activity Restrictions/Additional Instructions: *You have been diagnosed with [acute on chronic numbness, weakness, pain which is likely a consequence of a combination of things such as your injuries, problems with your back, medications ] *What to do: *Please continue to take your regular medications as directed. [ ] New medication prescriptions sent to your pharmacy: [ ] [ ] New medication written as a paper prescription [ x] No new medications given *Please follow up with your primary care provider in 2-3 days, call for an appointment. Let them know you were seen in the Emergency Department and that we ask that you be seen in follow up. We will electronically transmit a record of today's note if your PCP is in our system *Consider those items we talked about to help strengthen your coping mechanisms while you work with Dr. Solano to look at the big picture of why this is happening *Return to Emergency Department if you should have any new, worsening or concerning symptoms, such as [fever greater than 101 F, shaking chills, worsening pain, persistent vomiting or other bothersome symptoms] Prescriptions: No Action testosterone cypionate 200 mg/mL oil 200 mg IM Q2W Qty: 10 RF: 5 anastrozole 1 mg tablet 1 mg PO QDAY Qty: 90 RF: 3 emtricitabine-tenofovir (TDF) 200-300 mg tablet See Rx Instructions .ROUTE .COMPLEX Qty: 90 RF: 0 prazosin 1 mg capsule 2 mg PO BID Qty: 360 RF: 0 Referrals: Ross Solano MD [Primary Care Provider] -
--- NOTE | 2021-01-20 18:08 | DI.RAD.S_ITS ---
PROCEDURE: XR CHEST 1V INDICATIONS: shortness of breath TECHNIQUE: One view of the chest was acquired. COMPARISON: [facility], , CHEST 1 VIEW, 02/04/2017, 13:39. FINDINGS: Surgical changes and devices: None. Lungs and pleura: Lungs are clear. No pleural effusions or pneumothorax. Mediastinum: Mediastinal contours appear normal. Heart size is normal. Bones and chest wall: No suspicious bony lesions. Overlying soft tissues appear unremarkable. IMPRESSION: No acute cardiopulmonary findings Approved by: Fawad Foster M.D. on 01/20/2021 at 17:42
[2021-01-20 18:15] VITALS: BP 136/82; PULSE 72; RESP 22; O2SAT 95
--- NOTE | 2021-01-20 18:23 | PC.NURSE ---
Patient reports left femur replacement 05/14/20 but onset of pain was 2016 with hip and rib fracture. Reports pain is from left foot, up leg, abdominal, with SOB and pain on inspiration, pain in throat that causes gagging/vomiting, and up back of head. Pain improved with constant movement, worsen with rest. Pain most significant in left ankle but reports widespread body system involvement. Notified .
[2021-01-20 18:27] LABS: Add Manual Diff / Slide Review NO; Basophils Absolute Auto 100 /uL (0-100); Eosinophils Absolute Auto 100 /uL (0-450); Eosinophils Percent Auto 0.8 % (2-4); Hematocrit 43.1 % (41-53); Hemoglobin 14.2 g/dL (13.5-17.5); Lymphocytes Absolute Auto 1100 /uL (1100-4500); Lymphocytes Percent Auto 17.4 % (25-40); Mean Corpuscular HGB Conc 33.1 % (30-36); Mean Corpuscular Volume 90.8 fL (80-100); Monocytes Absolute Auto 600 /uL (0-900); Monocytes Percent Auto 8.8 % (3-14); Neutrophils Absolute Auto 4600 /uL (1500-7000); Platelet Count 173 X10^3/uL (150-400); Red Blood Cell Count 4.75 X10^6/uL (4.5-5.9); Red Cell Distribution Width 16.5 % (11.6-14.8); White Blood Cell Count 6.4 X10^3/uL (4.5-11.0)
[2021-01-20 18:39] LABS: Lactate (Lactic Acid) 0.9 mmol/L (0.7-2.1)
[2021-01-20 18:40] LABS: Alanine Aminotransferase 37 IU/L (<50); Albumin 4.9 g/dL (3.5-5.0); Albumin Globulin Ratio 1.6 (1.0-2.8); Alkaline Phosphatase 71 U/L (38-126); Aspartate Aminotransferase 43 IU/L (17-59); BUN Creatinine Ratio 10.7 (6-22); Bilirubin Total 1.1 mg/dL (0.2-1.3); Blood Urea Nitrogen 11 mg/dL (9-20); Calcium 9.7 mg/dL (8.4-10.2); Carbon Dioxide 26 mmol/L (22-32); Chloride 103 mmol/L (98-107); Creatine Kinase 324 U/L (55-170); Estimated Glomerular Filt Rate > 60.0 mL/min (>60); Glucose 94 mg/dL (70-100); HEMOLYSIS < 15 (0-50); Potassium 3.7 mmol/L (3.4-5.1); Sodium 140 mmol/L (137-145); Total Protein 7.9 g/dL (6.3-8.2)
[2021-01-20 18:51] LABS: Troponin I < 0.012 ng/mL (0.01-0.034)
[2021-01-20 18:55] LABS: CKMB % Relative Index 0.6 % (1.5-5.0); Creatine Kinase MB 1.94 ng/mL (<2.37)
[2021-01-20 19:39] VITALS: BP 134/75; PULSE 66; RESP 16; O2SAT 98
== END 2021-01-20 18:37 | disposition home or self-care (01) ==
PROVIDERS: Emergency Provider Emergency Medicine; Family Provider Nurse Practitioner Acute Care; PCP Family Medicine
DX: R20.2 Paresthesia of skin (principal); Z98.890 Other specified postprocedural states; R07.81 Pleurodynia; R06.02 Shortness of breath; R53.82 Chronic fatigue, unspecified
CPT/HCPCS: 36415; 71045; 80053; 82550; 82553; 83605; 84484; 85025; 99284

== ENCOUNTER → 2021-04-29 10:28 | Outpatient (CLI) | payer OTHER, SELFPAY ==
--- NOTE | 2021-04-29 10:30 | DI.RAD.S_ITS ---
PROCEDURE: XR THORACIC SPINE 3V INDICATIONS: back pain TECHNIQUE: 3 views of the thoracic spine were acquired. COMPARISON: None. FINDINGS: Bones: No acute fracture. Diffuse discogenic changes. Multilevel degenerative endplate sclerosis and spurring. Diffuse facet arthropathy. Soft tissues: No paravertebral stripe thickening. IMPRESSION: No acute findings. If the patient's pain or other symptoms persist, consider further evaluation with MRI Dictated by: Ted Chaves M.D. on 04/29/2021 at 12:49 Approved by: Ted Chaves M.D. on 04/29/2021 at 12:49
--- NOTE | 2021-04-29 10:30 | DI.RAD.S_ITS ---
PROCEDURE: XR CERVICAL SPINE 4V OR 5V INDICATIONS: back pain TECHNIQUE: 5 views of the cervical spine acquired. COMPARISON: None. FINDINGS: Bones: No acute fracture. Multilevel degenerative endplate sclerosis and spurring. Diffuse facet arthropathy. Mild levocurvature. On the left, there is moderate C3-C4 bony foraminal narrowing. On the right, neural foramen not well seen secondary to positioning. There is suspicion of diffuse foraminal stenoses however this could be better assessed with cross-sectional imaging Soft tissues: No prevertebral soft tissue swelling. IMPRESSION: Mild levocurvature Mild diffuse cervical discogenic changes. If the patient's pain or other symptoms persist, consider further evaluation with MRI Dictated by: Ted Chaves M.D. on 04/29/2021 at 13:29 Approved by: Ted Chaves M.D. on 04/29/2021 at 13:31
== END ==
PROVIDERS: Family Provider Family Medicine; PCP Family Medicine; Referring Provider Family Medicine; Visit Provider Family Medicine
DX: M47.812 Spondylosis without myelopathy or radiculopathy, cervical region (principal); M47.814 Spondylosis without myelopathy or radiculopathy, thoracic region; M54.2 Cervicalgia; M54.50 Low back pain, unspecified; M99.01 Segmental and somatic dysfunction of cervical region; M99.02 Segmental and somatic dysfunction of thoracic region; G89.29 Other chronic pain
CPT/HCPCS: 72050; 72072

== ENCOUNTER 2021-05-04 10:30 | Outpatient (RCR) | payer OTHER, SELFPAY ==
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
--- NOTE | 2021-03-25 15:15 | PT.OPPOC ---
Physical, Occupational & Speech Therapy At [facility] Current Diagnoses Other chronic pain (03/25/21) Pain in left shoulder (03/25/21) Stiffness of right foot, not elsewhere classified (03/25/21) Stiffness of left foot, not elsewhere classified (03/25/21) Cervicalgia (03/25/21) Low back pain, unspecified (03/25/21) Pain in thoracic spine (03/25/21) Pain in left foot (03/25/21) Cramp and spasm (03/25/21) Strain of muscle, fascia and tendon of unspecified hip, initial encounter (03/25/21) Visit Care Team Role Provider Type Jose Miguel Fitzgerald DO Referring Provider Physician Specialty: [facility] Address: [address] [place] [address], [id number] Email: Ross Solano MD Attending Provider Physician Family Provider Primary Care Provider Specialty: [facility] Address: [address] [place] [address], [id number] Email: [email or web address] Plan Of Care PT-OP-T Assessment and Plan Start: 03/20/21 10:39 Freq: Status: Active Protocol: Document 03/25/21 12:15 MB (Rec: 03/25/21 15:14 MB [id number]) Physical Therapy Assessment Rehab Potential Rehabilitation Potential Fair Evaluation Complexity Number of Personal Factors/Comorbidities 3 or More Number of Body Systems Impaired 3 Clinical Presentation at Evaluation Evolving Impairments Impairments Activity Tolerance,Pain, Posture,ROM,Sensation,Soft Tissue Mobility Other Impairments Personal factors include compounded stress and grief after losing his job several years ago d/t personal factors . He also lost his brother at that time d/t completion of suicide. 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 There is come concern he might lose his home. Further, he has a long history of injuries, concussion and these are compounding in nature as well. Body systems affected include musculoskeletal, neurological , psychosocial. His clinical presentation is evolving. Goals 4 Half-Way Goal (LTG) Pt will perform progressive HEP with I including postural, breathing, self-massage, strengthening, balance, and flexibility exercises to improve pain by 05/25/21. LTG Duration 8 weeks 3 Half-Way Goal (LTG) Pt will demonstrate active B shoulder abduction in standing to at least 150 deg to improve overhead activities by 05/25/21. LTG Duration 8 weeks 2 Half-Way Goal (LTG) Pt will present with improved B thoracic rotation in sitting to at least 30 deg without pain to improve rib mobility to improve shoulder range and allow return to athletic activities by 05/25/21. LTG Duration 8 weeks 1 Oil And Gas Specialist Goal (LTG) Pt will report a 50% improvement in left neck and thorax pain to improve quality of life by 05/25/21. 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 He reports he is going to for a work- up about TBI and CTE. During PT evaluation, he is very animated and in constant movement. He is guarded in his movements when asked to demonstrate range and he self- limits MMT and ROM initially. PT does feel that there psychosocial/grief/trauma components to his ongoing pain since he is no longer living the active lifestyle or doing the job that he loved. This may be a barrier to PT. Overall, pt is receptive to PT education and encouragement today. Will initiate some PCS education next treatment date, consider a [place] Treadmill Test to gain a target work-out HR for pt to allow him something positive to focus upon and work on outside PT. Other than that, will teach other self-care techniques such as Buteyko breathing and progressive muscle relaxation to try to get his sympathetic nervous system to settle down and improve parasympathetic response. He is receiving manual care from his providers and so PT will focus on education and self-care, exercise. PT may initiate Counterstrain. His clinical presentation is complicated. Physical Therapy Plan Frequency and Duration Frequency of Treatment 2x/Week Duration of Treatment 8 weeks Plan of Care Start Date 03/25/21 Plan of Care End Date 05/25/21 Therapeutic Interventions Therapeutic Interventions Aquatic Therapy,Balance Training,Canalithic Repositioning,Home Exercise Program,Joint Mobilizations, Manual Therapy,Neuromuscular Re-education,Patient/Caregiver Education,Self-Care/Home Management,Soft Tissue Mobilization,Taping, Therapeutic Activities, Therapeutic Exercises Modalities Cold Pack/Ice Massage,Hot Packs Next Visit Focus/Plan Next Note Type Treatment Note Next Visit Plan Initiate concussion cascade education, handout education, initiate Buteyko breathing, [place] Treadmill Test Plan of Care Dates Plan of Care Start Date 03/25/21 Plan of Care End Date 05/25/21 Electronically Signed by: Genia Ecsobar, PT 03/25/21 [id number] Please Sign and Return: I have reviewed this Plan of Care and certify that the skilled therapy services above are required to meet the patient?s needs. Physician Signature Date Printed Name and Credentials Clinical Instructor Signature Printed Name and Credentials
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
--- NOTE | 2021-05-12 11:01 | PT-OP ANOTE ---
Pt does not show for appointment and does not answer phone. PT leaves a message.
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
== END 2021-07-20 12:44 ==
LOC: PHYS 10:30
PROVIDERS: Family Provider Family Medicine; PCP Family Medicine; Referring Provider Family Medicine; Visit Provider Family Medicine
DX: M54.2 Cervicalgia (principal); M54.6 Pain in thoracic spine; G89.29 Other chronic pain; M54.50 Low back pain, unspecified; S76.019A Strain of muscle, fascia and tendon of unspecified hip, initial encounter; R25.2 Cramp and spasm; M79.672 Pain in left foot; M25.512 Pain in left shoulder; M25.674 Stiffness of right foot, not elsewhere classified; M25.675 Stiffness of left foot, not elsewhere classified
CPT/HCPCS: 97110; 97112; 97140; 97162; 97535

== ENCOUNTER → 2021-05-08 08:38 | Outpatient (CLI) | payer OTHER, SELFPAY ==
--- NOTE | 2021-05-08 08:39 | DI.MRI.S_ITS ---
PROCEDURE: MR CERVICAL SPINE WO CON INDICATIONS: cervical radiculopathy TECHNIQUE: Noncontrast sagittal T1 spin echo and T2 fast spin echo, sagittal STIR, foraminal oblique sagittal T2 fast spin echo, and axial gradient echo or T2 fast spin echo through the cervical spine. COMPARISON: [facility], CR, XR CERVICAL SPINE 4V OR 5V, 04/29/2021, 10:30. [facility], MR, MR THORACIC SPINE WO/W CON, 04/17/2020, 18:39. FINDINGS: Image quality: This examination is limited by involuntary motion artifact. Alignment and Curvature: There is normal bony alignment. Bone Marrow: Marrow demonstrates normal overall signal. Spinal Cord: Visualized spinal cord has normal size and signal. No cerebellar tonsillar herniation. Paraspinous Soft Tissues: No paravertebral masses. Prevertebral soft tissues are normal in thickness. C2-C3: The disc height and disk signal are well-preserved. A mild degree of generalized disc osteophyte complex is seen. There is mild right-sided and no significant left-sided neural foraminal narrowing seen. Minimal central canal narrowing is seen. C3-C4: The disc height and disk signal are relatively well-preserved. Moderate generalized disc osteophyte complex is seen. Moderate facet joint hypertrophy is seen. There is moderate to severe left-sided and at least moderate right-sided neural foraminal narrowing seen. Mild to moderate central canal narrowing is seen. C4-C5: The disc height is well-preserved. Loss of disc signal is seen at this level. Moderate generalized disc osteophyte complex is seen. There is a central/right disc osteophyte protrusion seen. Moderate facet joint hypertrophy is seen. There is at least moderate bilateral neural foraminal narrowing seen, right worse than left. Moderate central canal narrowing is seen. There is associated mass effect upon the ventral spinal cord. C5-C6: Mild loss of disc height is seen. Loss of disc signal is seen. Moderate generalized disc osteophyte complex is seen. There is a central disc osteophyte protrusion seen. Moderate facet joint hypertrophy is seen. Moderate bilateral neural foraminal narrowing is seen. At least moderate central canal narrowing is seen, with associated mass effect upon the ventral spinal cord. C6-C7: The disc height is well-preserved. Loss of disc signal is seen at this level. Moderate generalized disc osteophyte complex is seen. Moderate facet joint hypertrophy is seen. There is moderate to severe left-sided and [id number] right-sided neural foraminal narrowing seen. Minimal central canal narrowing is seen. C7-T1: The disc height and disk signal are well-preserved. A mild degree of generalized disc osteophyte complex is seen. There is moderate left-sided and mild right-sided facet hypertrophy seen. There is at least moderate left-sided and [id number] right-sided neural foraminal narrowing seen. No significant central canal narrowing is seen. IMPRESSION: Multiple levels of cervical spine degenerative change are seen, which are more prominent than would be expected for a patient of this age. Dictated by: Adalberto Morales M.D. on 05/08/2021 at 8:52 Approved by: Adalberto Morales M.D. on 05/08/2021 at 8:57
== END ==
PROVIDERS: Family Provider Family Medicine; PCP Family Medicine; Referring Provider Physical Medicine & Rehabilitation; Visit Provider Physical Medicine & Rehabilitation
DX: M47.812 Spondylosis without myelopathy or radiculopathy, cervical region (principal); M54.2 Cervicalgia; G89.29 Other chronic pain
CPT/HCPCS: 72141

== ENCOUNTER → 2021-09-07 11:47 | Outpatient (CLI) | payer OTHER, SELFPAY ==
[2021-09-07 13:33] LABS: COVID19 -Nasal RAPID Negative (Negative)
== END ==
PROVIDERS: Family Provider Family Medicine; PCP Family Medicine; Visit Provider Physical Medicine & Rehabilitation
DX: Z20.822 Contact with and (suspected) exposure to COVID-19 (principal)
CPT/HCPCS: 87635; C9803

== ENCOUNTER 2021-09-08 08:53 | Outpatient (CLI) | payer OTHER, SELFPAY ==
--- NOTE | 2021-09-08 09:45 | PC.NURSE ---
Patient reports that he took his NSAIDS yesterday. Dr. Lawrence made aware. Procedure moved to .
== END 2021-09-08 09:46 | disposition home or self-care (01) ==
LOC: RAD 08:55
PROVIDERS: Family Provider Family Medicine; PCP Family Medicine; Referring Provider Physical Medicine & Rehabilitation; Visit Provider Physical Medicine & Rehabilitation
DX: M54.12 Radiculopathy, cervical region (principal)

== ENCOUNTER 2021-09-10 08:04 | Outpatient (CLI) | payer OTHER, SELFPAY ==
[2021-09-10] VITALS (10 sets, daily range): BP systolic 123–154; BP diastolic 75–94; PULSE 59–76; RESP 12–20; TEMP 36.9; O2SAT 98–100
--- NOTE | 2021-09-10 08:42 | DI.RAD.S_ITS ---
PROCEDURE: PAIN C/T INTERLAMINAR INJECT INDICATIONS: SPINAL STENOSIS COMPARISON: [facility], MR, MR CERVICAL SPINE WO CON, 05/08/2021, 8:53. [facility], CR, XR CERVICAL SPINE 4V OR 5V, 04/29/2021, 10:30. FINDINGS: Fluoroscopic spot filming was performed to verify placement of a spinal needle at the C6-C7 level, as labeled on the films. Appropriate location of the needle tip was confirmed by injection of iodinated contrast. IMPRESSION: No significant intraprocedural abnormality. Dictated by: Adalberto Morales M.D. on 09/10/2021 at 8:35 Approved by: Adalberto Morales M.D. on 09/10/2021 at 8:35
[2021-09-10] MEDS: MIDAZOLAM 2 MG/2 ML VIAL IV (08:50)
[2021-09-10] MEDS: MIDAZOLAM 2 MG/2 ML VIAL (08:55)
--- NOTE | 2021-09-10 09:10 | P.PCN_ITS ---
Date/Time/Diagnoses Date of procedure: 09/10/21 Time of procedure: 09:10 Pre-procedure diagnosis: 1. CERVICAL STENOSIS, 2. CERVICAL HNP WITH UPPER EXTREMITY RADICULAR FEATURES Post-procedure diagnosis: same Procedure Notes Procedure: 1. FLUORSCOPICALLY GUIDED CONTRAST CONTROLLED INTERLAMINAR EPIDURAL STEROID INJECTION - C6/7 TL MIK Indications: Keenan is referred by Dr. Solano for treatment of Cervical HNP with Upper Extremity Paresthesias. Physician: Zan Lawrence Total Fluoroscopy time (seconds): 28 Total sedation minutes: 16 Complications: none Procedure in detail & Post-procedure care: FINDINGS Cervical Stenosis due to disc deterioration and nerve root irritation and nerve root irritation DESCRIPTION OF PROCEDURE Fluoroscopically guided, contrast-controlled C6/7 translaminar epidural steroid injection with conscious sedation. Following review of allergy and review of potential side effects and complications, including, but not necessarily limited to, infection, allergic reaction, local tissue breakdown, temporary as well as permanent nerve injury, stroke, paralysis, and possible , the patient indicated that patient understood and agreed to proceed. An informed consent document was signed by the patient, witnessed by a nurse, and placed in the patient's chart. Additionally, other treatment options including modalities, medications, and physical therapy were reviewed with the patient. After review of previous anaesthesic history and IV conscious sedation the patient was deemed safe to proceed with today?s procedure with IV conscious s edation as ASA class II designation. Safety time-out was performed to confirm patient ID, procedure to be performed and site of procedure. IV sedation was accomplished with a combination of 4mg of Versed administered by the RN after DO order, titrated to patient comfort during the course of the procedure while the patient remained responsive to all verbal commands. In the prone position, following sterile prep and drape of the cervical region, the C6/7 translaminar space was identified fluoroscopically. The skin was anesthetized via a 25-gauge 1.5-inch needle with 1% lidocaine solution. At this point, a 25-gauge, 2.5-inch short bevel spinal needle was atraumatically introduced and advanced under fluoroscopic guidance into epidural space at the C6/7 translaminar space. Depth was confirmed on lateral view. Radiological data, including multiple fluoroscopic views of the cervical spine, reveal a spinal needle at the C6/7 translaminar space. Lateral views then show placement of the needle in the epidural space. Subsequent views show contrast material flowing superiorly and inferiorly in the epidural space. DSA fluoroscopy with live contrast injection, once again, confirmed no vascular or intrathecal uptake. At this point, using loss of resistance technique with saline and air, the epidural space was entered. Following negative aspiration, injection of approximately 1.5 cc of Isovue-200 with live fluoroscopy in the AP view confirmed epidural flow in the epidural space without vascular or intrathecal uptake observed. Subsequently, a test dose of 1 cc of 1% lidocaine solution was injected and patient was observed for two minutes without signs or symptoms of complications, including abdominal pain, shortness of breath, bilateral upper or lower extremity weakness, nausea and vomiting, prior to steroid injection. At this point, 3cc or 30mg of dexamethasone was then injected without incident. The patient tolerated the procedure well without signs or symptoms of complications prior to being transferred to the recovery area for further monitoring, The patient was then transferred to the recovery area where they were observed for an appropriate period of time after the injection. The patient reported a VAS score of 6 prior to the procedure and a post-procedure VAS of 0. POST OP INSTRUCTIONS The patient was provided a Pain Log to continue to record their response to the target-specific procedure prior to follow-up visit with the referring provider. Additionally, specific post-injection care instructions and a contact number to our office were provided if concerns arise regarding possible complications associated with the procedure are suspected.
[2021-09-10] MEDS: BUPIVACAINE 0.25% (PF) VIAL 2 ML INJ (09:20)
[2021-09-10] MEDS: IOPAMIDOL 15 ML VIAL 3 ML INJ (09:20)
[2021-09-10] MEDS: DEXAMETHASONE 10 MG/ML VIAL 30 MG INJ (09:21)
== END 2021-09-10 09:39 | disposition home or self-care (01) ==
LOC: RAD 08:06
PROVIDERS: Family Provider Family Medicine; PCP Family Medicine; Referring Provider Physical Medicine & Rehabilitation; Visit Provider Physical Medicine & Rehabilitation
DX: M48.02 Spinal stenosis, cervical region (principal); M50.123 Cervical disc disorder at C6-C7 level with radiculopathy
CPT/HCPCS: 62321; 99152; J1100; J2250; J3010